=== PATIENT | female | born 1985 | race American Indian/Alaskan Native ===

== ENCOUNTER 2020-09-10 08:12 | Emergency (ER) | payer OTHER ==
[2020-09-10 08:29] VITALS: BP 100/67
--- NOTE | 2020-09-10 08:32 | Event Note ---
ED Screening Note ED Screening Note: 8 w preg w vag bleed This initial assessment/diagnostic orders/clinical plan/treatment(s) is/are subject to change based on patients health status, clinical progression and re- assessment by fellow clinical providers in the ED. Further treatment and workup at subsequent clinical providers discretion. Patient/guardian urged not to elope from the ED as their condition may be serious if not clinically assessed and managed. Initial orders include: victor manuel kidd
[2020-09-10 08:49] LABS: HCG Qualitative,Urine Positive (Negative)
[2020-09-10 08:53] LABS: Bilirubin,Urine NEG (Negative); Blood,Urine LG (Negative); Color,Urine Yellow (Yellow); Mucus,Urine FEW /HPF; Protein,Urine <15 mg/dL mg/dL (Negative); Urobilinogen,Urine < 2.0 mg/dL (<2.0)
[2020-09-10 09:53] LABS: Hematocrit 38.4 % (30.3-42.9); Hemoglobin 13.1 gm/dl (10.1-14.3); Mean Corpuscular HGB Conc 34 % (30-34); Mean Corpuscular Volume 93 fl (79-97); Platelet Count 207 K/mm3 (140-440); Red Blood Count 4.12 M/mm3 (3.65-5.03)
[2020-09-10 10:15] LABS: Blood Urea Nitrogen 9 mg/dL (7-17); Calcium 8.8 mg/dL (8.4-10.2); Hemolysis Index 3
[2020-09-10 10:16] LABS: BUN/Creatinine Ratio 23
--- NOTE | 2020-09-10 11:11 | Ultrasound Report ---
US OB transvaginal INDICATION / CLINICAL INFORMATION: vag bleed and preg. TECHNIQUE: Transvaginal. COMPARISON: None available. FINDINGS: UTERUS: Appears within normal limits. EMBRYO/FETUS: -Single intrauterine . - [place]-Rump Length = 22 cm = 8 weeks 6 days. - Heart Rate, beats per minute (if present) = 139. -There is a 3.6 x 1 x 2.3 cm subchorionic hemorrhage. ADNEXA: No significant abnormality. FREE FLUID: No definite free fluid.. ADDITIONAL FINDINGS: None. IMPRESSION: 1. Single, living intrauterine with a subchorionic hemorrhage present. 2. Estimated gestational age is 8 weeks and 6 days. Signer Name: Ryder Beverly MD Signed: 09/10/2020 11:07 AM Workstation Name: [id number]
--- NOTE | 2020-09-10 12:58 | Emergency Department Report ---
ED Female HPI - General Chief complaint: Vaginal Bleeding Stated complaint: , VAGINAL BLEEDING, ABD PAIN Time Seen by Provider: 09/10/20 08:31 Source: patient Mode of arrival: Ambulatory Limitations: No Limitations - History of Present Illness Initial comments: Ms. Mandujano is a 35-year-old female that comes to the emergency room with vaginal bleeding and . She was seen by her OB at [place] yesterday and everything was fine. Patient has her lab results from yesterday but there is no beta quant. After leaving the [facility] yesterday she had some vaginal bleeding. They did do a pelvic exam. She is denying pain at present. Patient estimates that she is approximately 8 weeks . Patient has no chest pain or shortness of breath. She has no fever or chills. No back pain. No abdominal pain. Vital signs are stable with no hypotension or tachycardia. She has no fever. MD Complaint: vaginal bleeding -: Sudden, days(s) Consistency: intermittent Improves with: none Worsens with: none Are you Now?: Yes Associated Symptoms: denies other symptoms, vaginal bleeding - Related Data Sexually active: Yes Previous Rx's Medication Instructions Recorded Last Taken Type Nitrofurantoin [place]/M-Cryst 100 mg PO Q12HR #10 capsule 09/10/20 Unknown Rx [Macrobid CAP] Ondansetron [Zofran Odt] 4 mg PO Q8HR PRN #10 tab.rapdis 09/10/20 Unknown Rx Allergies Allergy/AdvReac Type Severity Reaction Status Date / Time No Known Allergies Allergy Unverified 09/10/20 08:24 ED Review of Systems ROS: Stated complaint: , VAGINAL BLEEDING, ABD PAIN Other details as noted in HPI Comment: All other systems reviewed and negative ED Past Medical Hx - Past Medical History Previous Medical History?: Yes Hx Diabetes: Yes Hx Asthma: Yes Additional medical history: sickle cell trait - Surgical History Past Surgical History?: Yes Additional Surgical History: c-sectionx4 - Family History Family history: no significant - Social History Smoking Status: Current Every Day Smoker Substance Use Type: None - Medications Home Medications: Home Medications Medication Instructions Recorded Confirmed Last Taken Type Nitrofurantoin [place]/M-Cryst 100 mg PO Q12HR #10 capsule 09/10/20 Unknown Rx [Macrobid CAP] Ondansetron [Zofran Odt] 4 mg PO Q8HR PRN #10 tab.rapdis 09/10/20 Unknown Rx ED Physical Exam - General Limitations: No Limitations General appearance: alert, in no apparent distress - Head Head exam: Present: atraumatic, normocephalic - Eye Eye exam: Present: normal appearance - ENT ENT exam: Present: mucous membranes moist - Neck Neck exam: Present: normal inspection - Respiratory Respiratory exam: Present: normal lung sounds bilaterally. Absent: respiratory distress - Cardiovascular Cardiovascular Exam: Present: regular rate, normal rhythm. Absent: systolic murmur, diastolic murmur, rubs, gallop - GI/Abdominal GI/Abdominal exam: Present: soft, normal bowel sounds - Extremities Exam Extremities exam: Present: normal inspection - Back Exam Back exam: Present: normal inspection - Neurological Exam Neurological exam: Present: alert, oriented X3 - Psychiatric Psychiatric exam: Present: normal affect, normal mood - Skin Skin exam: Present: warm, dry, intact, normal color. Absent: rash ED Course Vital Signs 09/10/20 08:23 Temperature 98.2 F Pulse Rate 85 Respiratory 18 Rate Blood Pressure 100/67 O2 Sat by Pulse 93 Oximetry ED Medical Decision Making - Lab Data Result diagrams: 09/10/20 09:17 09/10/20 09:17 - Radiology Data Radiology results: report reviewed, image reviewed sub hem - Medical Decision Making Lab Results 09/10/20 09/10/20 09/10/20 Range/Units 08:43 09:17 09:17 WBC 7.0 (4.5-11.0) K/mm3 RBC 4.12 (3.65-5.03) M/mm3 Hgb 13.1 (10.1-14.3) gm/dl Hct 38.4 (30.3-42.9) % MCV 93 (79-97) fl MCH 32 (28-32) pg MCHC 34 (30-34) % RDW 13.0 L (13.2-15.2) % Plt Count 207 (140-440) K/mm3 Sodium 137 (137-145) mmol/L Potassium 3.7 (3.6-5.0) mmol/L Chloride 106.0 (98-107) mmol/L Carbon Dioxide 25 (22-30) mmol/L Anion Gap 10 mmol/L BUN 9 (7-17) mg/dL Creatinine 0.4 L (0.6-1.2) mg/dL Estimated GFR > 60 ml/min BUN/Creatinine Ratio 23 % Glucose 115 H (65-100) mg/dL Calcium 8.8 (8.4-10.2) mg/dL HCG, Quant (0-4) mIU/mL Urine Color Yellow (Yellow) Urine Turbidity Hazy (Clear) Urine pH 6.0 (5.0-7.0) Ur Specific [place] 1.013 (1.003-1.030) Urine Protein <15 mg/dl (Negative) mg/dL Urine Glucose (UA) Neg (Negative) mg/dL Urine Ketones Neg (Negative) mg/dL Urine Blood Lg (Negative) Urine Nitrite Neg (Negative) Ur Reducing Substances Not Reportable Urine Bilirubin Neg (Negative) Urine Ictotest Not Reportable Urine Urobilinogen < 2.0 (<2.0) mg/dL Ur Leukocyte Esterase Sm (Negative) Urine WBC (Auto) 13.0 H (0.0-6.0) /HPF Urine RBC (Auto) 1.0 (0.0-6.0) /HPF U Epithel Cells (Auto) 1.0 (0-13.0) /HPF Urine Mucus Few /HPF Urine HCG, Qual Positive A (Negative) Blood Type Ord Rhogam Gestat Weeks WEEKS 09/10/20 09/10/20 Range/Units 09:17 09:17 WBC (4.5-11.0) K/mm3 RBC (3.65-5.03) M/mm3 Hgb (10.1-14.3) gm/dl Hct (30.3-42.9) % MCV (79-97) fl MCH (28-32) pg MCHC (30-34) % RDW (13.2-15.2) % Plt Count (140-440) K/mm3 Sodium (137-145) mmol/L Potassium (3.6-5.0) mmol/L Chloride (98-107) mmol/L Carbon Dioxide (22-30) mmol/L Anion Gap mmol/L BUN (7-17) mg/dL Creatinine (0.6-1.2) mg/dL Estimated GFR ml/min BUN/Creatinine Ratio % Glucose (65-100) mg/dL Calcium (8.4-10.2) mg/dL HCG, Quant 26304 H (0-4) mIU/mL Urine Color (Yellow) Urine Turbidity (Clear) Urine pH (5.0-7.0) Ur Specific [place] (1.003-1.030) Urine Protein (Negative) mg/dL Urine Glucose (UA) (Negative) mg/dL Urine Ketones (Negative) mg/dL Urine Blood (Negative) Urine Nitrite (Negative) Ur Reducing Substances Urine Bilirubin (Negative) Urine Ictotest Urine Urobilinogen (<2.0) mg/dL Ur Leukocyte Esterase (Negative) Urine WBC (Auto) (0.0-6.0) /HPF Urine RBC (Auto) (0.0-6.0) /HPF U Epithel Cells (Auto) (0-13.0) /HPF Urine Mucus /HPF Urine HCG, Qual (Negative) Blood Type O POSITIVE Ord Rhogam Gestat Weeks Rh pos WEEKS Vital Signs 09/10/20 08:23 Temperature 98.2 F Pulse Rate 85 Respiratory 18 Rate Blood Pressure 100/67 O2 Sat by Pulse 93 Oximetry us noted never needed diabetic meds [facility] ua noted labs noted rh pos dc home with pcp follow up at [facility] in 48 hours. Patient verbalizes understanding discharge plan of care including pelvic rest and follow-up. Patient ambulatory [id number] nontoxic on discharge. - Differential Diagnosis ro ab Critical care attestation.: If time is entered above; I have spent that time in minutes in the direct care of this critically ill patient, excluding procedure time. ED Disposition Clinical Impression: Bleeding in early , UTI (urinary tract infection) Disposition: DC-01 TO HOME OR SELFCARE Is pt being admited?: No Does the pt Need Aspirin: No Condition: Stable Instructions: Vaginal Bleeding During , First Trimester Additional Instructions: med as ordered today diet and activity as tolerated follow up with obgyn in 48hours follow up at [facility] or at obgyn below rh pos Prescriptions: Nitrofurantoin [place]/M-Cryst [Macrobid CAP] 100 mg PO Q12HR #10 capsule Ondansetron [Zofran Odt] 4 mg PO Q8HR PRN #10 tab.rapdis PRN Reason: Vomiting Referrals: HANNAH MARTINEZ MD [Staff Physician] - 3-5 Days Time of Disposition: 13:01
--- NOTE | 2020-09-11 07:33 | Ultrasound Report ---
US OB <= 14 weeks fetus INDICATION / CLINICAL INFORMATION: vag bleed and preg. TECHNIQUE: Transvaginal. COMPARISON: None available. FINDINGS: UTERUS: Appears within normal limits. EMBRYO/FETUS: -Single intrauterine . - [place]-Rump Length = 22 mm = 8 weeks 6 days. - Heart Rate, beats per minute (if present) = 159. -There is a 3.6 x 0.9 x 2.3 cm subchorionic hemorrhage. ADNEXA: No significant abnormality. FREE FLUID: No definite free fluid.. ADDITIONAL FINDINGS: None. IMPRESSION: 1. Single, living intrauterine with a small subchorionic hemorrhage. 2. Estimated gestational age is 8 weeks and 6 days by ultrasound. Please note that the majority of the information for this exam was provided on the OB portion since t he exam was split into 2 parts. Signer Name: Wero Bowens MD Signed: 09/11/2020 7:29 AM Workstation Name: [id number]
== END 2020-09-10 13:09 | disposition home or self-care (01) ==
LOC: ED 08:12
DX: O23.41 Unspecified infection of urinary tract in pregnancy, first trimester (principal); E11.9 Type 2 diabetes mellitus without complications; J45.909 Unspecified asthma, uncomplicated; F17.200 Nicotine dependence, unspecified, uncomplicated; Z79.899 Other long term (current) drug therapy; O99.331 Smoking (tobacco) complicating pregnancy, first trimester; O99.511 Diseases of the respiratory system complicating pregnancy, first trimester; O24.311 Unspecified pre-existing diabetes mellitus in pregnancy, first trimester; Z3A.08 8 weeks gestation of pregnancy
CPT/HCPCS: 36415; 76801; 76817; 80048; 81001; 81025; 84702; 85027; 86900; 86901; 87086

== ENCOUNTER 2020-09-19 10:35 | Emergency (ER) | payer OTHER ==
[2020-09-19 11:02] VITALS: BP 98/60
--- NOTE | 2020-09-19 11:13 | Emergency Department Report ---
ED HPI - General Chief complaint: Vaginal Bleeding Stated complaint: 10 WKS /BLEEDING Time Seen by Provider: 09/19/20 11:09 Source: patient Mode of arrival: Ambulatory Limitations: No Limitations - History of Present Illness Initial comments: 35-year-old -[place] female presents to the emergency room stating she is approximately 10 weeks and started having vaginal bleeding with a very large clot. Patient complains of abdominal/pelvic cramping. Patient's last menstrual period was July 15, 2020. She is 5 para to 4. Denies any dysuria. Patient reports that she was told she has chronic hemorrhaging. Patient is followed by Dr. Zully Ryan PRESS OFFICER. Complaint: vaginal bleeding Quality: cramping Consistency: constant Improves with: none Associated symptoms: nausea/vomiting, vaginal bleeding, abdominal pain. denies: vaginal discharge Vaginal bleeding: heavy :: Yes Number of weeks : 10 - Related Data Previous Rx's Medication Instructions Recorded Last Taken Type Nitrofurantoin [place]/M-Cryst 100 mg PO Q12HR #10 capsule 09/10/20 Unknown Rx [Macrobid CAP] Ondansetron [Zofran Odt] 4 mg PO Q8HR PRN #10 tab.rapdis 09/10/20 Unknown Rx Allergies Allergy/AdvReac Type Severity Reaction Status Date / Time No Known Allergies Allergy Unverified 09/10/20 08:24 ED Review of Systems ROS: Stated complaint: 10 WKS /BLEEDING Other details as noted in HPI Comment: All other systems reviewed and negative ED Past Medical Hx - Past Medical History Previous Medical History?: Yes Hx Diabetes: Yes Hx Asthma: Yes Additional medical history: sickle cell trait - Surgical History Past Surgical History?: Yes Additional Surgical History: c-sectionx4 - Social History Smoking Status: Current Every Day Smoker Substance Use Type: None - Medications Home Medications: Home Medications Medication Instructions Recorded Confirmed Last Taken Type Nitrofurantoin [place]/M-Cryst 100 mg PO Q12HR #10 capsule 09/10/20 Unknown Rx [Macrobid CAP] Ondansetron [Zofran Odt] 4 mg PO Q8HR PRN #10 tab.rapdis 09/10/20 Unknown Rx ED Physical Exam - General Limitations: No Limitations General appearance: alert, in no apparent distress - Head Head exam: Present: atraumatic, normocephalic - Eye Eye exam: Present: normal appearance - ENT ENT exam: Present: mucous membranes moist - Neck Neck exam: Present: normal inspection - Respiratory Respiratory exam: Present: normal lung sounds bilaterally. Absent: respiratory distress - Cardiovascular Cardiovascular Exam: Present: regular rate, normal rhythm. Absent: systolic murmur, diastolic murmur, rubs, gallop - Extremities Exam Extremities exam: Present: normal inspection - Back Exam Back exam: Present: normal inspection - Neurological Exam Neurological exam: Present: alert, oriented X3 - Psychiatric Psychiatric exam: Present: normal affect, normal mood - Skin Skin exam: Present: warm, dry, intact, normal color. Absent: rash ED Course Vital Signs 09/19/20 10:44 Temperature 98.3 F Pulse Rate 96 H Respiratory 18 Rate Blood Pressure 98/60 O2 Sat by Pulse 99 Oximetry ED Medical Decision Making - Lab Data Result diagrams: 09/19/20 11:28 - Radiology Data Radiology results: report reviewed Patient: IHSAN PICHARDO MR#: [id number] 2 : 1985 Acct:[id number] Age/Sex: 35 / F ADM Date: 09/19/20 Loc: ED Attending Dr: Ordering Physician: SAMMIE SANDHU Date of Service: 09/19/20 Procedure(s): US OB <= 14 weeks fetus Accession Number(s): [id number] cc: SAMMIE SANDHU EARLY OBSTETRICAL ULTRASOUND INDICATION: 9 week 3 day with vag bleeding and clots COMPARISON: 09/10/2020 TECHNIQUE: Transabdominal FINDINGS: Intrauterine is again noted. Fetus is seen with estimated gestational age of 9 weeks 5 days by crown-rump length corresponding to the clinical dating and prior sonographic dating. Cardiac activity was seen with heart rate documented at 180 bpm. Previously there was a subchorionic hemorrhage which was elongated and had a maximal length of 3.6 cm with thickness of roughly 9 mm. On today's examination there appear to be 2 areas of subchorionic hemorrhage with the larger of the 2 measuring 4.8 cm in length with a thickness of 11 mm and the smaller the 2 having a length of 4.4 cm with a thickness of 2.3 cm. Thus there has been an increase in subchorionic hemorrhage since prior study. The gestational sac otherwise is unchanged however. Right ovary measures 2 cm in length and shows a minimal mildly complex cyst measuring 9 mm. The left ovary measures 2.4 cm in length and shows no focal abnormalities. No free fluid is seen. IMPRESSION: Intrauterine is again seen with appropriate growth and positive cardiac activity. However, there has been an increase in subchorionic hemorrhage as discussed above. Close follow-up is suggested. Signer Name: Jerel Brock MD Signed: 09/19/2020 12:15 PM Workstation Name: [id number] Transcribed By: ARMEN Dictated By: Jerel Brock MD Electronically Authenticated By: Jerel Brock MD Signed Date/Time: 09/19/20 1215 DD/ 1210 TD/TT: - Medical Decision Making 35-year-old -[place] female presents to the emergency room stating she is approximately 10 weeks and started having vaginal bleeding with a very large clot. Patient complains of abdominal/pelvic cramping. Patient's last menstrual period was July 15, 2020. She is 5 para to 4. Denies any dysuria. Patient is followed by Dr. Zully Ryan PRESS OFFICER. Ultrasound shows an increase in subchronic hemorrhage. Patient to be placed on threatened miscarriage protocol. Discussed with patient to follow-up with her PRESS OFFICER. She is to rest no jumping exercise intercourse. Discussed with patient that her urine shows that she has had a urinary tract infection. Patient states that she is on her last day of Keflex. She was prescribed Macrobid but her PRESS OFFICER told her to hold onto it as she prefers her patients not to have Macrobid on the first trimester. I discussed the patient that she needs to make contact with her PRESS OFFICER and see if she wants her to start the Macrobid. She does have an appointment on Tuesday. Copy of ultrasound has been placed on disc and copy of urinalysis has been given to patient. Critical care attestation.: If time is entered above; I have spent that time in minutes in the direct care of this critically ill patient, excluding procedure time. ED Disposition Clinical Impression: Bleeding in early , UTI (urinary tract infection), Subchorionic hemorrhage in first trimester Disposition: - TO HOME OR SELFCARE Is pt being admited?: No Does the pt Need Aspirin: No Condition: Stable Instructions: Urinary Tract Infection, Adult, [id number], Vaginal Bleeding During , First Trimester, [id number] Additional Instructions: Ultrasound shows a live intrauterine gestation. It does show an increase in subchronic hemorrhage. Is very important for you to do is pelvic rest. Which consist of no running jumping no exercises no strenuous activity rest. Increase your fluid intake and follow-up with your PRESS OFFICER. Discussed with your PRESS OFFICER if she is okay with you starting on Macrobid since being on Keflex x2 has not improved a urinary tract infection. Referrals: PRIMARY CARE,MD [Primary Care Provider] - 3-5 Days You are, PRESS OFFICER at [facility] [Other] - 3-5 Days Forms: Work/School Release Form(ED)
[2020-09-19 11:49] LABS: Basophils % (Auto) 0.3 % (0.0-1.8); Eosinophils % (Auto) 0.2 % (0.0-4.3); Hematocrit 38.6 % (30.3-42.9); Hemoglobin 13.3 gm/dl (10.1-14.3); Lymphocytes # (Auto) 2.3 K/mm3 (1.2-5.4); Lymphocytes % (Auto) 20.3 % (13.4-35.0); Mean Corpuscular HGB Conc 34 % (30-34); Mean Corpuscular Volume 93 fl (79-97); Monocytes # (Auto) 0.7 K/mm3 (0.0-0.8); Monocytes % (Auto) 6.2 % (0.0-7.3); Platelet Count 229 K/mm3 (140-440); Red Blood Count 4.17 M/mm3 (3.65-5.03); Red Cell Distribution Width 13.1 % (13.2-15.2)
[2020-09-19 12:06] LABS: RBC,Urine > 182.0 /HPF (0.0-6.0)
[2020-09-19 12:07] LABS: Bilirubin,Urine TNR (Negative); Color,Urine Red (Yellow)
[2020-09-19 12:08] LABS: Blood,Urine TNR (Negative); PH,Urine TNR (5.0-7.0); Protein,Urine TNR mg/dL (Negative); Urobilinogen,Urine TNR mg/dL (<2.0)
--- NOTE | 2020-09-19 12:20 | Ultrasound Report ---
EARLY OBSTETRICAL ULTRASOUND INDICATION: 9 week 3 day with vag bleeding and clots COMPARISON: 09/10/2020 TECHNIQUE: Transabdominal FINDINGS: Intrauterine is again noted. Fetus is seen with estimated gestational age of 9 we eks 5 days by crown-rump length corresponding to the clinical dating and prior sonographic dating. Ca rdiac activity was seen with heart rate documented at 180 bpm. Previously there was a subchorionic hemorrhage which was elongated and had a maximal length of 3.6 cm with thickness of roughly 9 mm. On today's examination there appear to be 2 areas of subchorionic he morrhage with the larger of the 2 measuring 4.8 cm in length with a thickness of 11 mm and the smalle r the 2 having a length of 4.4 cm with a thickness of 2.3 cm. Thus there has been an increase in subc horionic hemorrhage since prior study. The gestational sac otherwise is unchanged however. Right ovary measures 2 cm in length and shows a minimal mildly complex cyst measuring 9 mm. The left ovary measures 2.4 cm in length and shows no focal abnormalities. No free fluid is seen. IMPRESSION: Intrauterine is again seen with appropriate growth and positive cardiac activit y. However, there has been an increase in subchorionic hemorrhage as discussed above. Close follow-up is suggested. Signer Name: Jerel Brock MD Signed: 09/19/2020 12:15 PM Workstation Name: [id number]
== END 2020-09-19 13:00 | disposition home or self-care (01) ==
LOC: ED 10:35
DX: O23.41 Unspecified infection of urinary tract in pregnancy, first trimester (principal); O20.8 Other hemorrhage in early pregnancy; E11.9 Type 2 diabetes mellitus without complications; J45.909 Unspecified asthma, uncomplicated; F17.200 Nicotine dependence, unspecified, uncomplicated; Z3A.10 10 weeks gestation of pregnancy; Z98.890 Other specified postprocedural states; Z79.899 Other long term (current) drug therapy
CPT/HCPCS: 36415; 76801; 81001; 84702; 85025; 87086

== ENCOUNTER 2021-07-10 13:08 | Emergency (ER) | payer OTHER ==
[2021-07-10] MEDS ORDERED: KETOROLAC 30 MG/1 ML INJ IM ONE (13:43)
[2021-07-10] MEDS ORDERED: ALBUTEROL 2.5 MG/3 ML NEBU IH ONE (13:48)
[2021-07-10 14:38] LABS: Basophils # (Auto) 0.1 K/mm3 (0.0-0.1); Basophils % (Auto) 0.9 % (0.0-1.8); Eosinophils # (Auto) 0.1 K/mm3 (0.0-0.4); Hematocrit 40.4 % (30.3-42.9); Hemoglobin 13.6 gm/dl (10.1-14.3); Lymphocytes # (Auto) 2.6 K/mm3 (1.2-5.4); Lymphocytes % (Auto) 42.6 % (13.4-35.0); Mean Corpuscular HGB Conc 34 % (30-34); Mean Corpuscular Volume 89 fl (79-97); Monocytes # (Auto) 0.4 K/mm3 (0.0-0.8); Monocytes % (Auto) 7.1 % (0.0-7.3); Platelet Count 254 K/mm3 (140-440); Red Blood Count 4.57 M/mm3 (3.65-5.03); Red Cell Distribution Width 13.1 % (13.2-15.2)
[2021-07-10 14:53] LABS: Alanine Aminotransferase 10 units/L (7-56); Albumin 4.3 g/dL (3.9-5); Blood Urea Nitrogen 8 mg/dL (7-17); Calcium 9.2 mg/dL (8.4-10.2); Hemolysis Index 7
[2021-07-10 14:54] LABS: BUN/Creatinine Ratio 13
[2021-07-10 15:12] VITALS: BP 116/70
--- NOTE | 2021-07-10 16:45 | Cat Scan Report ---
CT ABDOMEN AND PELVIS WITH IV CONTRAST INDICATION: Periumbilicus tenderness. COMPARISON: None available. TECHNIQUE: Axial CT images were obtained through the abdomen and pelvis after 100 mL Omnipaque 300 injected IV p er protocol IV contrast. All CT scans at this location are performed using CT dose reduction for ALAR A by means of automated exposure control. FINDINGS -- ABDOMEN: Lung Bases: Borderline cavitary appearance of a nodular opacity within the right lower lobe measuring 1.4 cm in diameter.. Liver: Normal. Gallbladder: Normal. Bile Ducts: Normal. Pancreas: Normal. Spleen: Normal. Adrenals: Normal. Right Kidney and Proximal Ureter: Normal. Left Kidney and Proximal Ureter: Normal. Stomach and Bowel: Normal. Lymph Nodes: No significant adenopathy. Aorta: No significant abnormality. IVC: Normal. Additional Findings: Fat-containing ventral abdominal hernia the upper abdominal wall at midline.. FINDINGS -- PELVIS: Urinary Bladder and Distal Ureters: Normal. Reproductive Organs: No acute abnormality. Appendix: Normal. Bowel: No acute abnormality. Free Fluid: None. Lymph Nodes: No significant adenopathy. Additional Findings: None. Skeletal System: No acute abnormality. IMPRESSION: 1. 3.4 cm fat-containing hernia seen just above the level the umbilicus of the upper abdomen at midli ne. No evidence of bowel obstruction. 2. Borderline cavitary appearance of a nodular opacity within the lower lobe of the right lung. Under lying infection cannot be excluded. Signer Name: Eleno Wolff MD Signed: 07/10/2021 4:41 PM Workstation Name: [id number]
--- NOTE | 2021-07-10 18:09 | Emergency Department Report ---
ED Abdominal Pain HPI - General Chief Complaint: Abdominal Pain Stated Complaint: ABDOMINAL PAIN Time Seen by Provider: 07/10/21 13:33 Source: patient Mode of arrival: Ambulatory Limitations: No Limitations - History of Present Illness Initial Comments: 36-year-old -[place] female presents to the emergency room complaining abdominal pain with a history of a hernia and chest pain as tightness. Patient states that she has been having this hernia for over a year but has not followed up with general surgeon as they would like to do a mesh repair. Patient states she cannot take time off to get that procedure done. Therefore patient comes into the emergency room seeking pain medicine. Patient denies any vomiting no diarrhea will have intermittent nausea. She is 5 para 4 with 1 miscarriage. Last menstrual period was 07/05/2021. She denies any dysuria no vaginal discharge no vaginal bleeding. Patient is currently on no control. She does report having Covid in January with pneumonia. She still not vaccinated for Covid. Last seen her PCP was in August. MD Complaint: abdominal pain Onset/Timin -: days(s) Location: periumbilical Radiation: none Migration to: no migration Severity scale (0 -10): 0 Quality: aching, dull Improves With: nothing Worsens With: nothing Associated Symptoms: nausea. denies: vomiting, diarrhea - Related Data LMP Date: 07/05/21 Previous Rx's Medication Instructions Recorded Last Taken Type Nitrofurantoin [place]/M-Cryst 100 mg PO Q12HR #10 capsule 09/10/20 Unknown Rx [Macrobid CAP] Ondansetron [Zofran Odt] 4 mg PO Q8HR PRN #10 tab.rapdis 09/10/20 Unknown Rx Azithromycin [Zithromax Z-STEVEN] 250 mg PO DAILY #6 tab 07/10/21 Unknown Rx traMADoL [Ultram 50 MG tab] 50 mg PO Q6HR PRN #12 tablet 07/10/21 Unknown Rx Allergies Allergy/AdvReac Type Severity Reaction Status Date / Time No Known Allergies Allergy Unverified 09/10/20 08:24 ED Review of Systems ROS: Stated complaint: ABDOMINAL PAIN Other details as noted in HPI Comment: All other systems reviewed and negative ED Past Medical Hx - Past Medical History Hx Diabetes: Yes Hx Asthma: Yes Additional medical history: sickle cell trait - Surgical History Additional Surgical History: c-sectionx4 - Social History Smoking Status: Current Every Day Smoker Substance Use Type: None - Medications Home Medications: Home Medications Medication Instructions Recorded Confirmed Last Taken Type Nitrofurantoin [place]/M-Cryst 100 mg PO Q12HR #10 capsule 09/10/20 Unknown Rx [Macrobid CAP] Ondansetron [Zofran Odt] 4 mg PO Q8HR PRN #10 tab.rapdis 09/10/20 Unknown Rx Azithromycin [Zithromax Z-STEVEN] 250 mg PO DAILY #6 tab 07/10/21 Unknown Rx traMADoL [Ultram 50 MG tab] 50 mg PO Q6HR PRN #12 tablet 07/10/21 Unknown Rx ED Physical Exam - General Limitations: No Limitations ED Course Vital Signs 07/10/21 13:11 Temperature 98.0 F Pulse Rate 72 Respiratory 20 Rate Blood Pressure 127/80 [Right] O2 Sat by Pulse 100 Oximetry ED Medical Decision Making - Radiology Data Radiology results: [place] [address] Cat Scan Report Signed Patient: IHSAN PICHARDO MR#: [id number] 2 : 1985 Acct:[id number] Age/Sex: 36 / F ADM Date: 07/10/21 Loc: ED Attending Dr: Ordering Physician: SAMMIE SANDHU Date of Service: 07/10/21 Procedure(s): CT abdomen pelvis w con Accession Number(s): [id number] cc: SAMMIE SANDHU CT ABDOMEN AND PELVIS WITH IV CONTRAST INDICATION: Periumbilicus tenderness. COMPARISON: None available. TECHNIQUE: Axial CT images were obtained through the abdomen and pelvis after 100 mL Omnipaque 300 injected IV per protocol IV contrast. All CT scans at this location are performed using CT dose reduction for ALARA by means of automated exposure control. FINDINGS -- ABDOMEN: Lung Bases: Borderline cavitary appearance of a nodular opacity within the right lower lobe measuring 1.4 cm in diameter.. Liver: Normal. Gallbladder: Normal. Bile Ducts: Normal. Pancreas: Normal. Spleen: Normal. Adrenals: Normal. Right Kidney and Proximal Ureter: Normal. Left Kidney and Proximal Ureter: Normal. Stomach and Bowel: Normal. Lymph Nodes: No significant adenopathy. Aorta: No significant abnormality. IVC: Normal. Additional Findings: Fat-containing ventral abdominal hernia the upper abdominal wall at midline.. FINDINGS -- PELVIS: Urinary Bladder and Distal Ureters: Normal. Reproductive Organs: No acute abnormality. Appendix: Normal. Bowel: No acute abnormality. Free Fluid: None. Lymph Nodes: No significant adenopathy. Additional Findings: None. Skeletal System: No acute abnormality. IMPRESSION: 1. 3.4 cm fat-containing hernia seen just above the level the umbilicus of the upper abdomen at midline. No evidence of bowel obstruction. 2. Borderline cavitary appearance of a nodular opacity within the lower lobe of the right lung. Underlying infection cannot be excluded. Signer Name: Eleno Wolff MD Signed: 07/10/2021 4:41 PM Workstation Name: [id number] Transcribed By: AMALIA Dictated By: Eleno Wolff MD Electronically Authenticated By: Eleno Wolff MD Signed Date/Time: 07/10/21 164 DD/ 36 TD/TT: Critical care attestation.: If time is entered above; I have spent that time in minutes in the direct care of this critically ill patient, excluding procedure time. ED Disposition Clinical Impression: Chronic abdominal pain, Nodule of lower lobe of right lung, Ventral hernia Disposition: 01 HOME / SELF CARE / HOMELESS Is pt being admited?: No Does the pt Need Aspirin: No Condition: Stable Instructions: Abdominal Pain (ED), Ventral Hernia Additional Instructions: Ultrasound shows a right lower lung cavitation nodule concerning for possible infection we will treat with antibiotics. 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 It also shows that you have a hernia which you are aware of and you need to follow-up with general surgeon. Be sure to increase your fluids. Complete your antibiotics. Pain medication as needed. Prescriptions: traMADoL [Ultram 50 MG tab] 50 mg PO Q6HR PRN #12 tablet PRN Reason: Pain Azithromycin [Zithromax Z-STEVEN] 250 mg PO DAILY #6 tab Referrals: SHERMAN SANCHEZ MD [Staff Physician] - 3-5 Days Forms: Work/School Release Form(ED) Time of Disposition: 18:18
== END 2021-07-10 18:35 | disposition home or self-care (01) ==
LOC: ED 13:08
DX: K43.9 Ventral hernia without obstruction or gangrene (principal); R91.1 Solitary pulmonary nodule; E11.9 Type 2 diabetes mellitus without complications; J45.909 Unspecified asthma, uncomplicated; F17.200 Nicotine dependence, unspecified, uncomplicated; Z98.890 Other specified postprocedural states
CPT/HCPCS: 36415; 74177; 80053; 83690; 84702; 85025; 94640; 96372; 99284; J1885; Q9967; 94644

== ENCOUNTER 2022-01-01 11:09 | Emergency (ER) | payer OTHER ==
[2022-01-01 14:49] VITALS: BP 124/78
[2022-01-01] MEDS ORDERED: MORPHINE 4 MG/1 ML INJ IM ONE (14:57)
[2022-01-01] MEDS ORDERED: ONDANSETRON 4 MG ODT TAB PO ONE (14:57)
[2022-01-01 15:55] LABS: Bilirubin,Urine NEG (Negative); Blood,Urine SM (Negative); Color,Urine Yellow (Yellow); Protein,Urine <15 mg/dL mg/dL (Negative); Urobilinogen,Urine < 2.0 mg/dL (<2.0)
[2022-01-01 16:00] LABS: Hematocrit 43.5 % (30.3-42.9); Hemoglobin 14.6 gm/dl (10.1-14.3); Mean Corpuscular HGB Conc 33 % (30-34); Mean Corpuscular Volume 91 fl (79-97); Platelet Count 271 K/mm3 (140-440); Red Cell Distribution Width 13.6 % (13.2-15.2)
[2022-01-01 16:08] LABS: Alanine Aminotransferase 11 units/L (7-56); Albumin 4.8 g/dL (3.9-5); Blood Urea Nitrogen 15 mg/dL (7-17); Hemolysis Index 6
[2022-01-01 16:13] LABS: BUN/Creatinine Ratio 21
--- NOTE | 2022-01-01 17:34 | Cat Scan Report ---
CT ABDOMEN AND PELVIS WITHOUT CONTRAST INDICATION / CLINICAL INFORMATION: Abdominal pain. Possible hernia. TECHNIQUE: All CT scans at this location are performed using CT dose reduction for ALARA by means of automated exposure control. COMPARISON: 07/10/21. FINDINGS: ABDOMEN: There is a small localized area of parenchymal disease in the right posterior lung base whic h is smaller than on the prior study and is likely related to rounded atelectasis/scarring. No new ab normality is seen in the lung bases. There is a 4.5 cm fat-containing hernia in the midline, just above the umbilicus, without acute infla mmation or significant change. The liver, spleen, gallbladder, bile ducts, pancreas, adrenal glands, kidneys and bowel demonstrate n o significant abnormality. No adenopathy is present. There are mild atherosclerotic calcifications in volving the abdominal aorta. PELVIS: The distal ureters and urinary bladder are normal. The uterus and adnexal regions are unremar kable. A normal appendix is present and there is no evidence of diverticulitis. No abnormal mass or f luid collection is seen. No acute osseous abnormality is present. IMPRESSION: 1. Moderate fat-containing epigastric ventral hernia without acute complication has not changed signi ficantly. 2. Small focal area of rounded atelectasis/scarring in the right posterior lung base. 3. No acute intra-abdominal disease is identified. Signer Name: Indra Lozano MD Signed: 01/01/2022 5:29 PM Workstation Name: [id number]
[2022-01-01] MEDS ORDERED: KETOROLAC 10 MG TAB PO ONE (17:48)
[2022-01-01] MEDS ORDERED: cephALEXin 500 MG CAP PO ONE (17:48)
--- NOTE | 2022-01-01 17:53 | Emergency Department Report ---
ED Abdominal Pain HPI - General Chief Complaint: Abdominal Pain Stated Complaint: HERNIA Time Seen by Provider: 01/01/22 14:56 Source: EMS Mode of arrival: Stretcher Limitations: No Limitations - History of Present Illness Initial Comments: 36-year-old black female with a past medical history of diabetes and sickle cell anemia presents to the emergency department for evaluation of abdominal pain. She states that she has a known umbilical hernia and that for the last couple of months she has been having increased episodes of pain. She states that while at work today, she started to have some abdominal pain with nausea and vomiting. She states that pain got progressively worse and was so bad that it made her have to lie on the floor. She denies fever, dysuria, and vaginal discharge. She states that she has not taken any medication for her symptoms. MD Complaint: abdominal pain -: Gradual, hour(s) Location: periumbilical, suprapubic Radiation: none Migration to: no migration Severity scale (0 -10): 7 Quality: aching Consistency: constant Associated Symptoms: nausea, vomiting. denies: diarrhea, fever, chills, d ysuria, hematemesis, hematochezia, melena, hematuria, anorexia, syncope - Related Data LMP (females 10-50): last week Previous Rx's Medication Instructions Recorded Last Taken Type Nitrofurantoin [place]/M-Cryst 100 mg PO Q12HR #10 capsule 09/10/20 Unknown Rx [Macrobid CAP] Ondansetron [Zofran Odt] 4 mg PO Q8HR PRN #10 tab.rapdis 09/10/20 Unknown Rx Azithromycin [Zithromax Z-STEVEN] 250 mg PO DAILY #6 tab 07/10/21 Unknown Rx traMADoL [Ultram 50 MG tab] 50 mg PO Q6HR PRN #12 tablet 07/10/21 Unknown Rx Naproxen [Naprosyn] 500 mg PO BID #14 tab 01/01/22 Unknown Rx cephALEXin [Keflex] 500 mg PO BID #14 cap 01/01/22 Unknown Rx Allergies Allergy/AdvReac Type Severity Reaction Status Date / Time No Known Allergies Allergy Verified 01/01/22 14:49 ED Review of Systems ROS: Stated complaint: HERNIA Other details as noted in HPI Comment: All other systems reviewed and negative Constitutional: denies: chills, fever Respiratory: denies: cough, shortness of breath, SOB with exertion, SOB at rest, stridor, wheezing Cardiovascular: denies: chest pain, palpitations, dyspnea on exertion Gastrointestinal: abdominal pain, nausea, vomiting. denies: diarrhea, hematemesis, melena, hematochezia Genitourinary: denies: urgency, dysuria, frequency, hematuria, discharge Musculoskeletal: denies: back pain Neurological: denies: headache, weakness ED Past Medical Hx - Past Medical History Previous Medical History?: Yes Hx Diabetes: Yes Hx Asthma: Yes Additional medical history: sickle cell trait - Surgical History Past Surgical History?: Yes Additional Surgical History: c-sectionx4 - Social History Smoking Status: Never Smoker Substance Use Type: None - Medications Home Medications: Home Medications Medication Instructions Recorded Confirmed Last Taken Type Nitrofurantoin [place]/M-Cryst 100 mg PO Q12HR #10 capsule 09/10/20 01/01/22 Unknown Rx [Macrobid CAP] Ondansetron [Zofran Odt] 4 mg PO Q8HR PRN #10 tab.rapdis 09/10/20 01/01/22 Unknown Rx Azithromycin [Zithromax Z-STEVEN] 250 mg PO DAILY #6 tab 07/10/21 01/01/22 Unknown Rx traMADoL [Ultram 50 MG tab] 50 mg PO Q6HR PRN #12 tablet 07/10/21 01/01/22 Un known Rx Naproxen [Naprosyn] 500 mg PO BID #14 tab 01/01/22 Unknown Rx cephALEXin [Keflex] 500 mg PO BID #14 cap 01/01/22 Unknown Rx ED Physical Exam - General Limitations: No Limitations General appearance: alert, in no apparent distress - Head Head exam: Present: atraumatic, normocephalic - Eye Eye exam: Present: normal appearance. Absent: conjunctival injection - Neck Neck exam: Present: normal inspection, full ROM. Absent: tenderness, meningismus, lymphadenopathy - Respiratory Respiratory exam: Present: normal lung sounds bilaterally. Absent: respiratory distress, wheezes, rales, rhonchi, stridor, chest wall tenderness - Cardiovascular Cardiovascular Exam: Present: regular rate, normal heart sounds - GI/Abdominal GI/Abdominal exam: Present: soft, tenderness (Umbilical area), normal bowel sounds. Absent: distended, guarding, rebound, rigid - Extremities Exam Extremities exam: Present: normal inspection, normal capillary refill. Absent: tenderness, pedal edema, joint swelling, calf tenderness - Back Exam Back exam: Present: normal inspection. Absent: CVA tenderness (R), CVA tenderness (L), vertebral tenderness - Neurological Exam Neurological exam: Present: alert, oriented X3 - Psychiatric Psychiatric exam: Present: normal affect, normal mood - Skin Skin exam: Present: warm, dry, intact, normal color ED Course Vital Signs 01/01/22 01/01/22 11:12 14:47 Temperature 97.7 F 98.0 F Pulse Rate 78 76 Respiratory 18 20 Rate Blood Pressure 118/72 124/78 [Left] O2 Sat by Pulse 97 99 Oximetry ED Medical Decision Making - Lab Data Result diagrams: 01/01/22 15:02 01/01/22 15:02 - Radiology Data Radiology results: report reviewed CT abdomen and pelvis without contrast: FINDINGS: ABDOMEN: There is a small localized area of parenchymal disease in the right posterior lung base which is smaller than on the prior study and is likely related to rounded atelectasis/scarring. No new abnormality is seen in the lung bases. There is a 4.5 cm fat-containing hernia in the midline, just above the umbilicus, without acute inflammation or significant change. The liver, spleen, gallbladder, bile ducts, pancreas, adrenal glands, kidneys and bowel demonstrate no significant abnormality. No adenopathy is present. There are mild atheros clerotic calcifications involving the abdominal aorta. PELVIS: The distal ureters and urinary bladder are normal. The uterus and adnexal regions are unremarkable. A normal appendix is present and there is no evidence of diverticulitis. No abnormal mass or fluid collection is seen. No acute osseous abnormality is present. IMPRESSION: 1. Moderate fat-containing epigastric ventral hernia without acute complication has not changed significantly. 2. Small focal area of rounded atelectasis/scarring in the right posterior lung base. 3. No acute intra-abdominal disease is identified. - Medical Decision Making 36-year-old black female with a past medical history of diabetes and sickle cell anemia presents to the emergency department for evaluation of abdominal pain. She states that she has a known umbilical hernia and that for the last couple of months she has been having increased episodes of pain. She states that while at work today, she started to have some abdominal pain with nausea and vomiting. She states that pain got progressively worse and was so bad that it made her have to lie on the floor. She denies fever, dysuria, and vaginal discharge. She states that she has not taken any medication for her symptoms. No gross abnormalities noted on labs, and urine positive for urinary tract infection. CT scan of the abdomen pelvis noted to have epigastric ventral hernia without complications. Pain improved after medication. Patient will be treated for infection with 7-day course of Keflex and advised to follow-up with general surgery or primary care provider for further evaluation of hernia. She is advised to return to the care. Critical care attestation.: If time is entered above; I have spent that time in minutes in the direct care of this critically ill patient, excluding procedure time. ED Disposition Clinical Impression: Ventral hernia without obstruction or gangrene UTI (urinary tract infection) Qualifiers: Urinary tract infection type: acute cystitis Hematuria presence: with hematuria Qualified Code(s): N30.01 - Acute cystitis with hematuria Abdominal pain Qualifiers: Abdominal location: periumbilical Qualified Code(s): R10.33 - Periumbilical pain Disposition: HOME / SELF CARE / HOMELESS Is pt being admited?: No Does the pt Need Aspirin: No Condition: Stable Instructions: Antibiotic Medicine, Adult, [id number], Hernia, Adult, [id number], Urinary Tract Infection, Adult, [id number], Abdominal Pain, Adult, [id number], Abdominal Pain (ED) Additional Instructions: Take medications as prescribed. Follow-up with primary care provider if no improvement or worsening symptoms. Return to the emergency department as needed. Prescriptions: cephALEXin [Keflex] 500 mg PO BID #14 cap Naproxen [Naprosyn] 500 mg PO BID #14 tab Referrals: YVON MARRERO MD [Staff Physician] - 3-5 Days MONTSERRAT IRELAND MD [Staff Physician] - 3-5 Days Forms: Work/School Release Form(ED) Time of Disposition: 17:52
== END 2022-01-03 12:19 | disposition home or self-care (01) ==
LOC: ED 11:09
DX: K43.9 Ventral hernia without obstruction or gangrene (principal); N39.0 Urinary tract infection, site not specified; R10.9 Unspecified abdominal pain
CPT/HCPCS: 36415; 74176; 80053; 81001; 83690; 84703; 85027; 87086; 96372; 99284; J2270; J3490; Q0162